=== PATIENT | female | born 1960 | race Two or more races ===

== ENCOUNTER 2024-05-23 07:51 | Emergency (ER) | payer SELFPAY ==
[~2024-05-23] VITALS: Ht 152.4 cm; Wt 78.7 kg
[2024-05-23 08:17] VITALS: BP 127/58; PULSE 79; RESP 16; TEMP 98.3; O2SAT 94
[2024-05-23] MEDS: methylPREDNISolone SOD SUCC 125 MG/2 ML VL IM ONE (08:37)
[2024-05-23] MEDS: EPINEPHrine HCL 1 MG/1 ML AMP SC ONE (08:38)
[2024-05-23] MEDS ORDERED: HYDR25CA PO (08:41)
[2024-05-23] MEDS ORDERED: PRED20TA2 PO (08:41)
[2024-05-23] MEDS: EPINEPHrine HCL 1 MG/1 ML AMP ONE (08:49)
[2024-05-23] MEDS: methylPREDNISolone SOD SUCC 125 MG/2 ML VL ONE (08:49)
== END 2024-05-23 08:59 | disposition home or self-care (01) ==
LOC: ER 07:51
DX: T78.49XA Other allergy, initial encounter (principal); Z79.52 Long term (current) use of systemic steroids; Z79.899 Other long term (current) drug therapy; X58.XXXA Exposure to other specified factors, initial encounter
CPT/HCPCS: 96372; 99284; J0171; J2919